=== PATIENT | female | born 1965 | race Hispanic/Latino ===

== ENCOUNTER 2022-07-10 06:10 | Outpatient (CLI) | payer OTHER ==
[2022-07-10] MEDS ORDERED: BENZOCAINE 20% TOP SPRAY 0.5 ML UNIT DOSE MM NR (07:00)
[2022-07-10] MEDS ORDERED: SODIUM CHLORIDE 0.9% 1000 ML 1,000 ML IV SCH (07:00)
[2022-07-10 07:04] LABS: Basophils # (Auto) 0.1 K/mm3 (0.0-0.1); Basophils % (Auto) 1.4 % (0.0-1.8); Eosinophils # (Auto) 0.2 K/mm3 (0.0-0.4); Eosinophils % (Auto) 2.3 % (0.0-4.3); Hemoglobin 11.6 gm/dl (10.1-14.3); Lymphocytes # (Auto) 2.5 K/mm3 (1.2-5.4); Lymphocytes % (Auto) 34.2 % (13.4-35.0); Mean Corpuscular HGB Conc 33 % (30-34); Mean Corpuscular Volume 87 fl (79-97); Monocytes # (Auto) 0.4 K/mm3 (0.0-0.8); Monocytes % (Auto) 4.9 % (0.0-7.3); Platelet Count 327 K/mm3 (140-440); Red Blood Count 4.02 M/mm3 (3.65-5.03); Red Cell Distribution Width 13.3 % (13.2-15.2)
[2022-07-10 07:14] LABS: INR 0.86 (0.87-1.13)
[2022-07-10 07:15] LABS: Partial Thromboplastin Time 28.5 Sec. (24.2-36.6)
[2022-07-10 07:17] LABS: Blood Urea Nitrogen 16 mg/dL (7-17); Hemolysis Index 0
[2022-07-10] MEDS ORDERED: propofoL 200 MG/20 ML VIAL IV ONE ×2 (07:30)
[2022-07-10 07:31] LABS: BUN/Creatinine Ratio 27
--- NOTE | 2022-07-10 08:02 | Anesthesia Consultation ---
Anesthesia Consult and Med Hx Date of service: 07/10/22 - Airway Anesthetic Teeth Evaluation: Good ROM Head & Neck: Adequate Mental/Hyoid Distance: Adequate Mallampati Class: Class II Intubation Access Assessment: Probably Good - Pre-Operative Health Status ASA Pre-Surgery Classification: ASA2 Proposed Anesthetic Plan: MAC - Cardiovascular System Hx Hypertension: Yes Hx Heart Murmur: Yes - Central Nervous System Hx Psychiatric Problems: No - Other Systems Hx Cancer: No - Additional Comments Anesthesia Medical History Comments: h/o sepsis, TEDDY to rule out thrombotic vegetation in the heart
--- NOTE | 2022-07-10 08:03 | Anesthesia Day of Surgery ---
Anesthesia Day of Surgery - Day of Surgery Patient Examined: Yes Patient H&P Reviewed: Yes Patient is NPO: Yes
--- NOTE | 2022-07-10 09:22 | Short Stay Summary ---
Short Stay Documentation Date of service: 07/10/22 - History H&P: obtained from office - Allergies and Medications Current Medications: Allergies No Known Allergies Allergy (Unverified 07/08/22 10:07) Home Medications Medication Instructions Recorded Confirmed Last Taken Type Aspirin [Adult Aspirin] 81 mg PO DAILY 07/10/22 07/10/22 07/09/22 History Hydroxychloroquine [Plaquenil] 200 mg PO QDAY 07/10/22 07/10/22 07/09/22 History Losartan Potassium 25 mg PO BID 07/10/22 07/10/22 07/09/22 History Meloxicam [Mobic] 15 mg PO QDAY 07/10/22 07/10/22 07/09/22 History [place]-3 Fatty Acids/Fish Oil [Fish 1 each PO DAILY 07/10/22 07/10/22 07/09/22 History Oil 1,000 mg Capsule] estradioL [Estradiol] 0.5 mg PO DAILY 07/10/22 07/10/22 07/09/22 History Active Medications Benzocaine (Benzocaine 20% Top Annabella 0.5 Ml Unit Dose) 3 spray MM PREOP NR Stop: 07/10/22 17:00 Last Admin: 07/10/22 08:14 Dose: 3 spray Sodium Chloride (Nacl 0.9% 1000 Ml) 1,000 mls @ 42 mls/hr IV DIRECT EDI Stop: 07/10/22 19:00 Last Admin: 07/10/22 08:15 Dose: 42 mls/hr - Brief post op/procedure progress note Date of procedure: 07/10/22 - Hospital course Hospital course: Patient presented today for TEDDY to rule out endocarditis. Patient tolerated procedure well with no complications. No valvular vegetations or thrombus is noted see echo report for full details. Patient to be discharged home with prescription for amlodipine 2.5 mg p.o. daily plan of care discussed with patient who verbalized understanding and acknowledged - Disposition Condition at discharge: Good Disposition: 01 HOME / SELF CARE / HOMELESS Short Stay Discharge Plan Activity: advance as tolerated Diet: low fat, low cholesterol, low salt Follow up with: KATE AMBROSIO NP [Primary Care Provider] - 7 Days Forms: TEDDY Discharge Form Prescriptions: Amlodipine Besylate [Norvasc] 2.5 mg PO DAILY 30 Days #30 tab
--- NOTE | 2022-07-10 09:26 | Post Anesthesia Evaluation ---
- Post Anesthesia Evaluation Patient Participated: Yes Airway Patent: Yes Stable Respiratory Function: Yes Nausea/Vomiting: No Temp > 96.8F: Yes Pain Manageable: Yes Adequeate Hydration: Yes Anesthesia Complications: No
[2022-07-10 10:02] VITALS: BP 148/69
== END 2022-07-10 10:45 | disposition home or self-care (01) ==
LOC: CATHLABREC 06:10
PROVIDERS: ATTEND Internal Medicine
DX: R01.1 Cardiac murmur, unspecified (principal); I34.0 Nonrheumatic mitral (valve) insufficiency; Z20.822 Contact with and (suspected) exposure to COVID-19; Z79.899 Other long term (current) drug therapy; Z79.82 Long term (current) use of aspirin; I10 Essential (primary) hypertension; Z98.891 History of uterine scar from previous surgery; Z98.890 Other specified postprocedural states
CPT/HCPCS: 36415; 80048; 85025; 85610; 85730; 93312; 93320; 93325; J2704; J7030; U0003